=== PATIENT | female | born 1960 | race Caucasian/White ===

== ENCOUNTER 2017-03-13 11:25 | Day surgery (SDC) | payer OTHER ==
[2017-03-12 09:56] LABS: ASPARTATE AMINO TRANSFERASE 43 U/L (15-37); BLOOD UREA NITROGEN 16 mg/dL (7-18)
[~2017-03-13] VITALS: Ht 162.6 cm; Wt 80.2 kg
[~2017-03-13 11:25] MED LIST: BUPIVACAINE/PF 0.5% ONE; EPINEPHRINE 1 MG/ML, 1ML ONE; LIDOCAINE/PF 1%, 30ML ONE; METF500T4 PO
[2017-03-13] MEDS ORDERED: BUPIVACAINE/PF-EPI 0.25% 1:200K INFIL ONE (11:34)
[2017-03-13] MEDS ORDERED: LIDOCAINE 1%-EPI 1:100K, 30ML INFIL ONE (11:34)
[2017-03-13] MEDS ORDERED: MIDAZOLAM 1 MG/ML, 2ML ONE (11:46)
[2017-03-13] MEDS ORDERED: FENTANYL PF 100 MCG/2ML ONE ×2 (11:46→13:49)
[2017-03-13] MEDS ORDERED: LACTATED RINGERS 1,000 ML IV SCH (12:22)
[2017-03-13 12:23] VITALS: BP 126/80
[2017-03-13] MEDS ORDERED: PROPOFOL 10 MG/ML, 20ML ONE (12:58)
[2017-03-13] MEDS ORDERED: CEFAZOLIN 1,000 MG ONE (12:58)
[2017-03-13] MEDS ORDERED: ONDANSETRON 2MG/ML, 2ML ONE (12:58)
[2017-03-13] MEDS ORDERED: DEXAMETHASONE 4 MG/ML, 1ML ONE (12:58)
[2017-03-13] MEDS ORDERED: KETOROLAC 30 MG/1 ML ONE (12:58)
[2017-03-13] MEDS ORDERED: HYDROmorphone 1 MG/ML, 1ML ONE (13:06)
[2017-03-13] MEDS ORDERED: LORazepam 2 MG/ML, 1ML IVPush PRN (13:30)
[2017-03-13] MEDS ORDERED: hydrALAzine 20 MG/ML, 1ML IV PRN (13:30)
[2017-03-13] MEDS ORDERED: ACETAMINOPHEN 325 MG TABLET PO PRN (13:30)
[2017-03-13] MEDS ORDERED: DIAZEPAM 5 MG/ML, 2ML IVPush PRN (13:30)
[2017-03-13] MEDS ORDERED: FENTANYL PF 100 MCG/2ML IV PRN (13:30)
[2017-03-13] MEDS ORDERED: MEPERIDINE/PF 25MG/0.5ML IVPush PRN (13:30)
[2017-03-13] MEDS ORDERED: MIDAZOLAM 1 MG/ML, 2ML IV PRN (13:30)
[2017-03-13] MEDS ORDERED: LABETALOL 5MG/ML, 20ML IV PRN (13:30)
[2017-03-13] MEDS ORDERED: ALBUTEROL/IPRATROPIUM 2.5MG/0.5MG, 3 ML NPPB PRN (13:30)
[2017-03-13] MEDS ORDERED: PROMETHAZINE 25 MG/ML, 1ML IV PRN (13:30)
[2017-03-13] MEDS ORDERED: ONDANSETRON 2MG/ML, 2ML IVPush PRN (13:30)
[2017-03-13] MEDS ORDERED: HYDROmorphone 1 MG/ML, 1ML IV PRN (13:30)
[2017-03-13] MEDS ORDERED: OXYcodone 5 MG/5 ML ORAL.SOL UDC PO PRN (13:30)
[2017-03-13] MEDS ORDERED: ACETAMINOPHEN 650 MG/20.3 ML UDC ONE (13:48)
[2017-03-13] MEDS ORDERED: OXYcodone 5 MG/5 ML ORAL.SOL UDC ONE (13:49)
[2017-03-13] MEDS ORDERED: ACETAMINOPHEN 325 MG TABLET ONE (13:49)
[2017-03-13] MEDS ORDERED: metFORMIN 500 MG TABLET PO SCH (21:00)
== END 2017-03-13 16:30 ==
LOC: OUT 11:25
PROVIDERS: ATTEND Orthopaedic Surgery
DX: S83.232A Complex tear of medial meniscus, current injury, left knee, initial encounter (principal); M94.262 Chondromalacia, left knee; Z88.0 Allergy status to penicillin; Z91.040 Latex allergy status; X58.XXXA Exposure to other specified factors, initial encounter; Y93.89 Activity, other specified; Y92.89 Other specified places as the place of occurrence of the external cause; Y99.8 Other external cause status
CPT/HCPCS: 29881; 36415; 80053; 82962; 93005; J0171; J0690; J1100; J1170; J1885; J2250; J2405; J2704; J3010; J3490; J7120